=== PATIENT | female | born 1950 | race Caucasian/White ===

== ENCOUNTER 2018-12-21 14:58 | Emergency (ER) | payer MEDICARE, OTHER ==
[~2018-12-21] VITALS: Ht 170.2 cm; Wt 72.0 kg
[2018-12-21 15:02] VITALS: Ht 170.2 cm; Wt 72.0 kg
[2018-12-21] MEDS ORDERED: KETOROLAC 15 MG INJ IV STA (19:10)
--- NOTE | 2018-12-21 19:52 | ERD ---
ER Documentation Chief Complaint Chief Complaint CP X 8 hrs, radiating to back, sent by PMD David HPI 68-year-old female history of remote breast cancer with right-sided mastectomy 6 years ago with negative disease and follow-up who presents with chest pain. She states that earlier this morning she has left-sided upper back discomfort that is somewhat pleuritic. It is reproducible with rotation and touch. She also notes some worsening discomfort when she moves her arm. She denies exertional symptoms, no significant shortness of breath, no leg swelling no history of DVT and no hemoptysis or fever. No chest pressure in the central portion of her chest. ROS All systems reviewed and are negative except as per history of present illness. Medications Home Meds Active Scripts Ibuprofen* (Motrin*) 800 Mg Tab, 800 MG PO Q6H PRN for PAIN AND OR ELEVATED TEMP, #30 TAB take with food Prov:RUTHANN MOREAU MD 12/21/18 PMhx/Soc History of Surgery: Yes (Right mastectomy) Hx Miscellaneous Medical Probl: Yes (varicose veins, bulging discs) Hx Alcohol Use: No Hx Substance Use: No Hx Tobacco Use: No Smoking Status: Never smoker FmHx Family History: No diabetes, No coronary disease Physical Exam Vitals Vital Signs Date Temp Pulse Resp B/P (MAP) Pulse Ox O2 O2 Flow FiO2 Time Delivery Rate 12/21/18 66 18 136/76 96 Room Air 22:39 (96) 12/21/18 69 16 134/84 98 Room Air 21:42 (101) 12/21/18 66 16 150/86 97 Room Air 19:29 (107) 12/21/18 98.5 56 18 154/79 93 15:02 (104) Physical Exam General: Well developed, well nourished, no acute distress Head: Normocephalic, atraumatic. Eyes: Pupils equally reactive, EOM intact ENT: Moist mucous membranes Neck: Supple, no lymphadenopathy Respiratory: Lungs clear bilaterally, no distress Cardiovascular: RRR, no murmurs, rubs, or gallops Thorax: Reproducible left back and anterior thoracic wall pain Abdominal: Soft, non-tender, non-distended, no peritoneal signs : Deferred MSK: No edema, no unilateral swelling, 5/5 strength Neurologic: Alert and oriented, moving all extremities, normal speech, no focal weakness, no cerebellar signs Skin: No rash Psych: Normal mood Result Diagram: 12/21/18191612/21/181916 Results 24 hrs Laboratory Tests Test 12/21/18 19:17 12/21/18 21:45 White Blood Count 7.3 10^3/ul Red Blood Count 4.90 10^6/ul Hemoglobin 14.5 g/dl Hematocrit 44.3 % Mean Corpuscular Volume 90.4 fl Mean Corpuscular Hemoglobin 29.6 pg Mean Corpuscular Hemoglobin Concent 32.7 g/dl Red Cell Distribution Width 13.2 % Platelet Count 168 10^3/UL Mean Platelet Volume 10.4 fl Immature Granulocytes % 0.500 % Neutrophils % 64.1 % Lymphocytes % 26.2 % Monocytes % 7.4 % Eosinophils % 1.4 % Basophils % 0.4 % Nucleated Red Blood Cells % 0.0 /100WBC Immature Granulocytes # 0.040 10^3/ul Neutrophils # 4.7 10^3/ul Lymphocytes # 1.9 10^3/ul Monocytes # 0.5 10^3/ul Eosinophils # 0.1 10^3/ul Basophils # 0.0 10^3/ul Nucleated Red Blood Cells # 0.0 10^3/ul D-Dimer 542.82 ng/ml D-Dimer Comment Sodium Level 142 mmol/L Potassium Level 4.2 mmol/L Chloride Level 105 mmol/L Carbon Dioxide Level 29 mmol/L Anion Gap 8 Blood Urea Nitrogen 21 mg/dl Creatinine 0.76 mg/dl Est Glomerular Filtrat Rate mL/min > 60 mL/min Glucose Level 90 mg/dl Calcium Level 9.9 mg/dl Troponin I < 0.012 ng/ml < 0.012 ng/ml Current Medications Medications Dose Sig/Poppy Start Time Status Last (Trade) Ordered Route PRN Stop Time Admin Dose Reason Admin Ketorolac 15 mg ONCE STAT 12/21/18 DC 12/21/18 Tromethamine IV 19:10 19:23 (Toradol) 12/21/18 19:11 Sodium 1,000 ml @ Q1H STAT 12/21/18 DC 12/21/18 Chloride 1,000 mls/hr IV 21:13 22:00 12/21/18 22:12 IV Flush 10 ml STK-MED 12/21/18 DC (NS 10 ml) ONCE .ROUTE 22:35 12/21/18 22:36 Sodium 100 ml @ ud STK-MED 12/21/18 DC Chloride ONCE .ROUTE 22:35 12/21/18 22:36 Iohexol 100 ml @ ud STK-MED 12/21/18 DC ONCE .ROUTE 22:35 12/21/18 22:36 Iohexol 50 ml STK-MED 12/21/18 DC (Omnipaque ONCE .ROUTE 22:35 350mg/ ml) 12/21/18 22:36 Procedures/MDM EKG, MONITORS, & DIAGNOSTIC IMAGING: EKG: I reviewed and interpreted a 12-lead EKG. Rhythm: Normal sinus rhythm ST Changes: No contiguous ST segment elevations T waves: No contiguous T wave inversions Impression: [No evidence of acute cardiac ischemia] Repeat EKG: EKG: I reviewed and interpreted a 12-lead EKG. Rhythm: Normal sinus rhythm ST Changes: No contiguous ST segment elevations T waves: No contiguous T wave inversions Impression: [No evidence of acute cardiac ischemia] Chest x-ray: I reviewed and interpreted a 1 view of the chest Mediastinum: No enlargement Cardiac silhouette: No cardiomegaly Airspace: Clear lung albrigth bilaterally without evidence of pneumothorax Bones: No evidence of fracture CT PA IMPRESSION: 1. No evidence for pulmonary embolism. 2. Mild basilar dominant bronchiectasis without mucus plugging and minimal lower lobe lung scarring without infiltrate. 3. Aortic atherosclerosis is present. 4. Absence of the right breast is likely related to prior mastectomy. Correlation with surgical history is recommended. PROCEDURES: [None] LAB INTERPRETATION: * pos d dimer * neg trop x 2 MEDICAL DECISION MAKING: The patient's history, physical exam and clinical presentation is very consistent with musculoskeletal etiology. Patient is very reproducible symptoms. There is a mild pleuritic component but this seems to be more musc ular skeletal than consistent with pulmonary embolism. The patient does have a remote history of breast CA. CTPA not indicated given wells low risk criteria but d-dimer appropriate. Very low clinical concern for acute coronary syndrome. The patient has reproducible symptoms without exertional symptoms. No significant risk factors other than age for acute coronary syndrome. Patient is very adamant about not being admitted. Based on the patient's clinical exam and history and risk factors, I have a much lower clinical concern for pulmonary embolism, acute aortic dissection, pneumothorax, pneumonia, cardiac tamponade HEART Score: 3 MACE Rate: 1.7% Shared Decision Making: We had a conversation regarding risk stratification, MACE rate, and the risks, benefits, alternatives of disposition planning options. Disposition planning: The patient feels very strongly about going home. She has been informed of the risk benefits and alternatives. She is agreed to a 3-hour delta troponin and discharge ER COURSE: * I spoke to the patient's primary care physician Dr. Bunrs who agrees and will help follow-up with [facility] on an outpatient basis * Toradol provided * Positive d-dimer prompt CTPA note which is negative. Troponin negative x2. The patient's symptoms improved. She can be safely discharged. Again most likely muscular skeletal in etiology. Return precautions were discussed and understood. Her primary care physician was notified and will help arrange cardiology consultation. CONSULTATION: [None] DISPOSITION PLAN: The patient does not have an identifiable emergent medical condition that warrants inpatient hospitalization at this time. The patient is deemed safe for discharge with outpatient follow-up. We discussed follow up with the patient's primary care doctor within 24 to 48 hours as needed. We also discussed return to the emergency room for worsening symptoms or worsening condition. Outpatient referral: Cardiology Discharge Medications: Motrin Departure Diagnosis: Primary Impression: Back pain, thoracic Chronicity: acute Back pain laterality: left Qualified Codes: M54.6 - Pain in thoracic spine Condition: Stable RUTHANN MOREAU MD Dec 21, 2018 19:52
[2018-12-21] MEDS ORDERED: SOD CHLORIDE 0.9% 1,000 ML IV STA (21:13)
[2018-12-21] MEDS ORDERED: IOHEXOL 100 ML ONE (22:35)
[2018-12-21] MEDS ORDERED: SOD CHLORIDE 0.9% 100 ML ONE (22:35)
[2018-12-21] MEDS ORDERED: IOHEXOL 350MG/ML 50 ML BTL ONE (22:35)
[2018-12-21] MEDS ORDERED: IBUP800T48 PO (23:29)
[2018-12-21 23:30] VITALS: BP 134/84; PULSE 64; RESP 16
== END 2018-12-21 23:57 | disposition home or self-care (01) ==
LOC: E/R 14:58
DX: M54.6 Pain in thoracic spine (principal); Z85.3 Personal history of malignant neoplasm of breast
CPT/HCPCS: 36415; 71045; 71275; 80048; 84484; 85025; 85378; 93005; 96374; 99285; J1885; J7030; Q9967